=== PATIENT | male | born 1965 | race Caucasian/White ===

== ENCOUNTER 2020-01-19 18:35 | Emergency (ER) | payer OTHER, SELFPAY ==
--- NOTE | 2020-01-19 18:41 | ED.GENADULT ---
HPI - General Adult General Chief complaint: Dizziness Stated complaint: Dizziness Time Seen by Provider: 01/19/20 18:40 Source: patient Mode of arrival: ambulatory Limitations: no limitations History of Present Illness HPI narrative: 54-year-old male patient presents to the [facility] with complaints of dizziness that started about 2 days ago. Patient denies any lightheadedness. Patient states he does not have any chest pain shortness of breath, fevers, vomiting or diarrhea. Patient states when the dizziness occurs he does have a little bit of nausea. Patient states that the dizziness started suddenly about 2 days ago and states it is worse with movement and worse when riding in a car. Patient denies any vision changes. Related Data Home Medications Medication Instructions Recorded Confirmed alprazolam 01/19/20 hydrocodone-acetaminophen 01/19/20 Allergies Allergy/AdvReac Type Severity Reaction Status Date / Time No Known Allergies Allergy Verified 10/08/16 08:11 Review of Systems Review of Systems: Narrative: CONSTITUTIONAL: Denies fever, chills, or sweats. EYES: Denies visual changes, redness, or discharge. ENT: Denies rhinorrhea, congestion, sore throat, positive intermittent left otalgia. CARDIOVASCULAR: Denies chest pain, palpitations, or edema. RESPIRATORY: Denies cough or dyspnea. GASTROINTESTINAL: Denies abdominal pain, nausea, vomiting, or diarrhea. GENITOURINARY: Denies dysuria or hematuria. SKIN: Denies rash or itching. MUSCULOSKELETAL: Denies back pain, joint pain, or myalgia. NEUROLOGIC: Denies headache, numbness, or weakness. Positive dizziness PSYCHIATRIC: Denies anxiety or depression. PMFSH Past Medical History Medical History (Updated 01/19/20 @ 19:02 by RICO Warren) Back pain Ruptured disc in back in 2006 GERD (gastroesophageal reflux disease) Nasal fracture Surgical History Surgical History (Updated 01/19/20 @ 18:42 by RICO Warren) H/O inguinal hernia repair Comments At the time of my signature I agree with nursing past medical history, surgical, social, and family history. There is no relevant family history pertinent to the presenting complaint. Exam Narrative: Exam Narrative: GENERAL: Well-appearing, well-nourished, and in no acute distress. HEAD: Normocephalic, atraumatic. EYES: PERRLA and EOMI. ENT: Nares clear, no rhinorrhea or epistaxis. Mucous membranes moist. Bilateral TMs are clear with no erythema or foreign bodies to the canal. Posterior pharynx with no erythema. NECK: Supple. No lymphadenopathy CHEST: Clear to auscultation. No respiratory distress. HEART: Regular rate and rhythm. No murmur heard. Normal peripheral pulses. ABDOMEN: Soft, nontender, nondistended, normal active bowel sounds. EXTREMITIES: Normal range of motion. No edema. SKIN: Warm, dry, no rash. NEURO: Alert and oriented x4, GCS 15. Cranial nerves II through XII grossly intact. No focal neurological deficits. Normal muscle strength and tone. Normal deep tendon reflexes. Negative Babinski, normal finger to nose coordination he had normal heel to villafana glide. Speech is clear. Normal gait. Negative Romberg and no pronator drift. Negative Shazia Hallpike test. Course Vital Signs Vital signs: Vital Signs Temperature 37.2 C 01/19/20 18:48 Pulse Rate 76 01/19/20 18:48 Respiratory Rate 16 01/19/20 18:48 Blood Pressure 157/88 H 01/19/20 18:48 Pulse Oximetry 98 01/19/20 18:48 Temperature 37.2 C 01/19/20 18:48 Pulse Rate 76 01/19/20 18:48 Respiratory Rate 16 01/19/20 18:48 Blood Pressure 157/88 H 01/19/20 18:48 Pulse Oximetry 98 01/19/20 18:48 Vital signs reviewed. The patient has been informed that they may have pre-hypertension or Hypertension based on a BP reading in the department. I recommend that the patient call the primary care provider listed on their discharge instructions or a physician of their choice this week to arrange follow up fo
[2020-01-19 18:48] VITALS: BP 157/88; PULSE 76; RESP 16; TEMP 37.2; O2SAT 98
== END 2020-01-19 19:04 | disposition home or self-care (01) ==
PROVIDERS: Emergency Provider Nurse Practitioner Family; PCP Family Medicine
DX: R42 Dizziness and giddiness (principal); K21.9 Gastro-esophageal reflux disease without esophagitis
CPT/HCPCS: 99213; G0463

== ENCOUNTER 2020-05-28 06:53 | Outpatient (NON) | payer OTHER, SELFPAY ==
[2020-05-30 13:29] LABS: SARS-CoV-2 RNA PCR Negative
== END 2020-05-28 06:54 ==
LOC: ANHCOVIDDT 07:00
PROVIDERS: PCP Family Medicine; Visit Provider Family Medicine
DX: Z20.828 Contact with and (suspected) exposure to other viral communicable diseases (principal)
CPT/HCPCS: 87635; C9803; U0003

== ENCOUNTER → 2021-05-23 03:15 | Outpatient (CLI) | payer OTHER, SELFPAY ==
[2021-05-23 17:50] LABS: SARS-CoV-2 RNA PCR Negative
[2021-05-23 21:14] LABS: Influenza Control Positive
== END ==
PROVIDERS: PCP Internal Medicine; Visit Provider Internal Medicine
DX: J06.9 Acute upper respiratory infection, unspecified (principal); R68.89 Other general symptoms and signs; Z20.822 Contact with and (suspected) exposure to COVID-19
CPT/HCPCS: 87804; C9803; U0003; U0005

== ENCOUNTER → 2021-07-10 02:56 | Outpatient (CLI) | payer OTHER, SELFPAY ==
[2021-07-10 13:26] LABS: Influenza Control Positive
[2021-07-10 21:06] LABS: SARS-CoV-2 RNA PCR Positive
== END ==
PROVIDERS: PCP Internal Medicine; Visit Provider Nurse Practitioner
DX: U07.1 COVID-19 (principal)
CPT/HCPCS: 87804; C9803; U0003; U0005

== ENCOUNTER 2023-03-24 15:14 | Emergency (ER) | payer OTHER, SELFPAY ==
[2023-03-24 15:27] VITALS: BP 128/90; PULSE 75; RESP 16; TEMP 36.3; O2SAT 99
--- NOTE | 2023-03-24 16:38 | ED.GENADULT ---
HPI - General Adult General Chief complaint: Upper Respiratory Infection Stated complaint: Sinus/Abdominal Pain Source: patient Mode of arrival: ambulatory Limitations: no limitations History of Present Illness HPI narrative: Patient presents for evaluation of sick symptoms. Symptom onset last night. He reports headache, body aches, chills, nausea, vomiting, productive cough, and sore throat. No fever, shortness of breath, otalgia. No recent sick contacts to his knowledge. He is not taking any medication to assist with the symptoms. He does not smoke. He has not taken a COVID test. Related Data Allergies Allergy/AdvReac Type Severity Reaction Status Date / Time No Known Allergies Allergy Verified 03/24/23 15:40 Review of Systems Review of Systems: CONSTITUTIONAL: Reports chills. Denies fever or sweats. EYES: Denies visual changes, redness, or discharge. ENT: Reports sore throat. Denies rhinorrhea, congestion or otalgia. CARDIOVASCULAR: Denies chest pain, palpitations, or edema. RESPIRATORY: Reports cough. Denies SOB GASTROINTESTINAL: Reports nausea and vomiting. Denies abdominal pain or diarrhea. GENITOURINARY: Denies dysuria or hematuria. SKIN: Denies rash or itching. MUSCULOSKELETAL: Reports generalized body aches NEUROLOGIC: Reports headache. Denies numbness, dizziness, or weakness. PSYCHIATRIC: Denies anxiety or depression. [facility] Past Medical History Medical History Anxiety Back pain Ruptured disc in back in 2006 COVID-19 GERD (gastroesophageal reflux disease) Left knee DJD Nasal fracture Right knee DJD Surgical History Surgical History H/O inguinal hernia repair Family History Family History Mother Family history non-contributory Social History Social History Smoking packs per day: 2 Smoking cigarettes per day: 40.0 Years smoked: 20 Smoking pack-years: 40.00 Smoking status: Former smoker Tobacco type: cigarettes Second hand tobacco smoke exposure: No Smoking end date: 07/13/02 Alcohol intake: current Alcohol use details: Social Substance use: never Substance use type: does not use Lack of Transportation: No Difficulty Paying for Meds: No Currently Unemployed: No Education: Associate Degree Difficulty w/ Childcare or Family Care: No Living arrangements: alone Occupation/Education: occupation Additional occupation/education comments: [employer] Gender identity (if verbalized by the patient): Male Sexual Orientation (if Verbalized by the Patient): Straight or Heterosexual Exam Narrative: GENERAL: Well-appearing, well-nourished, and in no acute distress. HEAD: Normocephalic, atraumatic. EYES: PERRLA and EOMI. ENT: Nares clear, no rhinorrhea or epistaxis. Mucous membranes moist. Oropharynx without tonsillar hypertrophy exudate or other lesions. Bilateral TMs pearly denton nonbulging NECK: Supple. No adenopathy or masses. No carotid bruits or JVD CHEST: Clear to auscultation. No respiratory distress. No wheezes rales or rhonchi HEART: Regular rate and rhythm. No murmur heard. Normal peripheral pulses. ABDOMEN: Soft, nontender, nondistended, normal active bowel sounds. EXTREMITIES: Normal range of motion. No edema. SKIN: Warm, dry, no rash. NEURO: No focal deficits. Alert and oriented x3. PSYCH: Normal mood and affect. Course Course Emergency Course: This is a 57-year-old male who presented for evaluation of sick symptoms. COVID and influenza were negative. He has no adventitious lung sounds warranting chest x-ray. Exam is consistent with acute viral syndrome. Increase hydration. Discharge with ibuprofen, Zofran, and mucinex DM. Follow up with primary provider. Go to the ER f
== END 2023-03-24 16:50 | disposition home or self-care (01) ==
PROVIDERS: Emergency Provider Nurse Practitioner; PCP Family Medicine
DX: B34.9 Viral infection, unspecified (principal); Z87.891 Personal history of nicotine dependence; Z20.822 Contact with and (suspected) exposure to COVID-19
CPT/HCPCS: 87426; 87804; 99213; C9803; G0463

== ENCOUNTER 2023-08-16 10:40 | Emergency (ER) | payer OTHER, SELFPAY ==
[2023-08-16 11:10] VITALS: BP 154/84; PULSE 73; RESP 16; TEMP 36.7; O2SAT 98
--- NOTE | 2023-08-16 12:16 | ED.GENADULT ---
HPI - General Adult General Chief complaint: Upper Respiratory Infection Stated complaint: Bodyaches/Cough Source: patient Mode of arrival: ambulatory Limitations: no limitations History of Present Illness HPI narrative: Patient presents for evaluation of sick symptoms for last 2 days. Symptoms include chills, scratchy throat, nausea, generalized body aches, mild SOB and a scratchy feeling in the lungs . No recent sick contacts to his knowledge. No fever, vomiting, diarrhea. Last bowel movement this morning, substantial in size, solid and without the presence of mucous or blood. He is not taking any medications to assist with his symptoms. Related Data Allergies Allergy/AdvReac Type Severity Reaction Status Date / Time No Known Allergies Allergy Verified 08/16/23 12:09 Review of Systems Review of Systems: CONSTITUTIONAL: reports chills. Denies fever. EYES: Denies visual changes, redness, or discharge. ENT: Reports scratchy throat .Denies rhinorrhea, congestion, sore throat, or otalgia. CARDIOVASCULAR: Denies chest pain, palpitations, or edema. RESPIRATORY: Reports mild shortness of breath. Denies cough. GASTROINTESTINAL: Reports nausea. Denies abdominal pain, vomiting, or diarrhea. GENITOURINARY: Denies dysuria or hematuria. SKIN: Denies rash or itching. MUSCULOSKELETAL: Reports generalized body aches. NEUROLOGIC: Denies headache, numbness, dizziness, or weakness. PSYCHIATRIC: Denies anxiety or depression. [facility] Past Medical History Medical History Anxiety Back pain Ruptured disc in back in 2006 COVID-19 GERD (gastroesophageal reflux disease) Left knee DJD Nasal fracture Right knee DJD Right knee pain Surgical History Surgical History H/O inguinal hernia repair Family History Family History Mother Family history non-contributory Social History Social History Smoking packs per day: 2 Smoking cigarettes per day: 40.0 Years smoked: 20 Smoking pack-years: 40.00 Smoking status: Former smoker Tobacco type: cigarettes Second hand tobacco smoke exposure: No Smoking end date: 07/13/02 Alcohol intake: current Alcohol use details: Social Substance use: never Substance use type: does not use Lack of Transportation: No Difficulty Paying for Meds: No Currently Unemployed: No Education: Associate Degree Difficulty w/ Childcare or Family Care: No Living arrangements: alone Occupation/Education: occupation Additional occupation/education comments: [employer] Gender identity (if verbalized by the patient): Male Sexual Orientation (if Verbalized by the Patient): Straight or Heterosexual Exam Narrative: GENERAL: Well-appearing, well-nourished, and in no acute distress. HEAD: Normocephalic, atraumatic. EYES: PERRLA and EOMI. ENT: Nares clear, no rhinorrhea or epistaxis. Mucous membranes moist. Oropharynx without tonsillar hypertrophy exudate or other lesions. Bilateral TMs pearly denton nonbulging NECK: Supple. No adenopathy or masses. No carotid bruits or JVD CHEST: Clear to auscultation. No respiratory distress. No wheezes rales or rhonchi HEART: Regular rate and rhythm. No murmur heard. Normal peripheral pulses. ABDOMEN: Soft, nontender, nondistended, normal active bowel sounds. EXTREMITIES: Normal range of motion. No edema. SKIN: Warm, dry, no rash. NEURO: No focal deficits. Alert and oriented x3. PSYCH: Normal mood and affect. Course Course Emergency Course: This is a 58-year-old male who presented for evaluation of sick symptoms. COVID, influenza, strep were all negative. I offered to check a chest x-ray, which she declined. His exam is consistent with acute viral syndrome. Recommended o
== END 2023-08-16 12:50 | disposition home or self-care (01) ==
PROVIDERS: Emergency Provider Nurse Practitioner; PCP Nurse Practitioner
DX: B34.9 Viral infection, unspecified (principal); Z20.822 Contact with and (suspected) exposure to COVID-19; Z87.891 Personal history of nicotine dependence; K21.9 Gastro-esophageal reflux disease without esophagitis; M17.0 Bilateral primary osteoarthritis of knee; Z86.16 Personal history of COVID-19; F41.9 Anxiety disorder, unspecified
CPT/HCPCS: 87081; 87426; 87804; 87880; 99213; G0463

== ENCOUNTER 2024-08-03 08:48 | Emergency (ER) | payer BC, SELFPAY ==
--- NOTE | ~2024-08-03 | XR_ITS ---
Clinical Indication: Fever, cough PA and lateral views of the chest: Comparison: 01/01/2012 Findings: The lungs are clear, without evidence of focal consolidation or pleural effusion. Cardiome diastinal silhouette is within normal limits. Bones and soft tissues are unremarkable. Impression: Normal chest. Reviewed, dictated and finalized at [facility]. ONY WORKER Impression: Normal chest.
--- NOTE | 2024-08-03 09:02 | ED_ITS ---
HPI - URI/Sore Throat General Chief Complaint: Upper Respiratory Infection Stated Complaint: Sore Throat/Bodyaches Time Seen by Provider: 08/03/24 09:02 Source: patient, RN notes reviewed and old records reviewed Mode of arrival: ambulatory Limitations: no limitations History of Present Illness HPI Narrative: Patient presents with complaints of cough, sore throat, body aches, fever. He reports that symptoms began on Thursday and have been worsening. He reports that throat pain and cough for the worst of the symptoms. He has been taking [id number] medications with moderate relief. Says no matter what he does throat pain persists. Says the pain is worst in the morning, improves after drinking tea in the morning. No drooling or stridor, he is able to manage own secretions. Related Data Allergies Allergy/AdvReac Type Severity Reaction Status Date / Time No Known Allergies Allergy Verified 08/03/24 08:53 Review of Systems Review of Systems: All systems reviewed & are unremarkable except as noted in HPI and below Constitutional: Constitutional: Reports no additional constitutional complaints, Reports body ache(s), Reports chills, Reports fever(s) and Reports headache(s) ENT: Reports system reviewed and no additional complaints, except as documented, Reports nasal congestion and Reports sore throat Cardiovascular: Cardiovascular: Reports no additional cardiovascular complaints Respiratory: Respiratory: Reports no additional respiratory complaints and Rep orts cough Gastrointestinal: Gastrointestinal: Reports no additional gastrointestinal complaints [facility] Past Medical History Medical History Anxiety Back pain Ruptured disc in back in 2006 COVID-19 GERD (gastroesophageal reflux disease) Left knee DJD Nasal fracture Right knee DJD Right knee pain Surgical History Surgical History H/O inguinal hernia repair Family History Family History Mother Family history non-contributory Social History Social History Smoking packs per day: 2 Smoking cigarettes per day: 40.0 Years smoked: 20 Smoking pack-years: 40.00 Smoking status: Former smoker Tobacco type: cigarettes Second hand tobacco smoke exposure: No Smoking end date: 07/13/02 Alcohol intake: current Alcohol use details: Social Substance use: never Substance use type: does not use Lack of Transportation: No Difficulty Paying for Meds: No Currently Unemployed: No Education: Associate Degree Difficulty w/ Childcare or Family Care: No Living arrangements: alone Occupation/Education: occupation Additional occupation/education comments: [employer] Gender identity (if verbalized by the patient): Male Sexual Orientation (if Verbalized by the Patient): Straight or Heterosexual Comments At the time of my signature, I reviewed and agree with the nursing past medical, surgical, social, and family history. There is no relevant family history pertinent to the patient complaint. Exam Const: General: cooperative, no acute distress, alert and awake Orientation/consciousness: oriented to person, oriented to place and oriented to time HENMT: Head: normal to inspection Ears: TM's normal bilaterally Mouth: Yes oropharynx normal Throat: uvular edema Resp: Effort & Inspection: normal respiratory effort and able to speak in complete sentences Auscultation: clear to auscultation bilaterally, no crackles, no rales, no rhonchi and no wheezes Cardio: Palpation: normal PMI Rate: regular rate Rhythm: regular rhythm Heart sounds: S1 normal heart sound present and S2 normal heart sound present Neuro: General: oriented to person, oriented to place and oriented to time Cranial nerves: Yes CN's II-XII intact bilaterally Psych: Appearance: grossly normal Thought process: Normal thought process present Insight: Good insight present (Psych) Judgement: Good judgement present (Psych) Course Course Level of Care: Express Care Visit Vital Signs Vital signs: Reviewed MDM - URI/Sore Throat MDM Narrative Medical decision making narrative: Patient with mild swelling of the uvula, erythematous oropharynx. Able to manage own secretions, no wheezing, drooling, stridor noted. Negative flu, negative COVID, negative strep. Culture is pending. Will treat with antibiotics and steroids. Emergency department precautions discussed with patient. Discharge instructions reviewed with patient, as well as provided in writing per nursing staff. The instructions also include specific and strict return/GO TO THE ER as well as f/u information. All questions have been answered, and the patient deny any further questions with discharge and discharge plan. Some parts of this dictation were generated by voice recognition software and may contain typographical and/or grammatical inaccuracies. Differential Diagnosis Differential diagnosis: Likely upper respiratory infection, otitis media, influenza and pharyngitis Medical Records Attestation: I reviewed the patient's medical records. Lab Data Attestation: I reviewed the patient's lab results. Imaging Data Attestation: I personally reviewed and interpreted this imaging study as follows: My impression: no acute findings Radiologist's impression: [facility] [address] [place] [address] XRay Report Signed Patient: Dakotah Hadley Jr. : 1965 MR#: [id number] Age: 59 Acct:[id number] Loc: [facility] ADM Date: 08/03/24Attending Dr: Ordering Physician: Cynthia Waldrop FNP Date of Service: 08/03/24 Procedure(s): XR chest 2V Accession Number(s): [id number] cc: Cynthia Waldrop FNP; Juan Manuel Johnson APN~ Clinical Indication: Fever, cough PA and lateral views of the chest: Comparison: 01/01/2012 Findings: The lungs are clear, without evidence of focal consolidation or pleural effusion. Cardiomediastinal silhouette is within normal limits. Bones and soft tissues are unremarkable. Impression: Normal chest. Reviewed, dictated and finalized at [facility]. [employer] Please be advised this is a medical document. It is intended for [id number]-sqwz communication. It is written in medical language and may contain unfamiliar abbreviations or verbiage. Medical documents are intended to carry relevant information, facts as evident, and the clinical opinion of the practitioner at the time of the encounter. This report may have been done utilizing a voice recognition system. Attempts have been made to correct errors. However, there may be uncorrected grammatical, spelling, and recognition errors present. The file time of this note does not necessarily represent the time of service. Dictated By: Chandra Jerez MD 08/03/2448 Signed By: <Electronically signed by Chandra Jerez MD in OV> 08/03/24947 Discharge Plan Discharge Clinical Impression: Uvulitis URI (upper respiratory infection) Qualifiers: URI type: unspecified viral URI Qualified Code(s): J06.9 - Acute upper respiratory infection, unspecified Patient Disposition: Home, Self-Care Condition: Stable Instructions: Antibiotic Form, Uvulitis (ED), Cold Symptoms (ED) Additional Instructions: Take medications as prescribed. Follow with primary care provider. Emergency department for new or worse symptoms Patient Language: South Korean Prescriptions: New amoxicillin 875 mg tablet 875 mg PO Q12H Qty: 20 0RF prednisone 50 mg tablet 50 mg PO DAILY Qty: 5 0RF No Action omeprazole 40 mg capsule,delayed release(DR/EC) 40 mg PO DAILY Qty: 90 1RF alprazolam 1 mg tablet 1 mg PO TID PRN (Reason: anxiety) Qty: 70 0RF hydrocodone-acetaminophen 7.5-325 mg tablet 1 tablet PO TID PRN (Reason: pain) Qty: 90 0RF Follow-up/Referrals: Juan Manuel Johnson APRN [Primary Care Provider] - Stand Alone Forms: Work/School Release IP Time of Disposition: 10:00
[2024-08-03 09:10] VITALS: BP 164/99; PULSE 108; RESP 15; TEMP 37.7; O2SAT 98
[2024-08-03 09:25] LABS: EDCOVIDSCREEN Negative (Negative); EDINFLUASCREEN Negative (Negative); EDINFLUBSCREEN Negative (Negative); EDSTREPNEGPOS1 Negative (Negative)
== END 2024-08-03 10:05 | disposition home or self-care (01) ==
PROVIDERS: Emergency Provider Nurse Practitioner Family; PCP Nurse Practitioner
DX: K12.2 Cellulitis and abscess of mouth (principal); J06.9 Acute upper respiratory infection, unspecified; Z20.822 Contact with and (suspected) exposure to COVID-19; Z87.891 Personal history of nicotine dependence; K21.9 Gastro-esophageal reflux disease without esophagitis; M17.0 Bilateral primary osteoarthritis of knee; Z86.16 Personal history of COVID-19
CPT/HCPCS: 71046; 87081; 87426; 87804; 87880; 99213; G0463

== ENCOUNTER 2025-05-05 08:09 | Outpatient (CLI) | payer BC, SELFPAY ==
--- NOTE | ~2025-05-05 | US_ITS ---
ULTRASOUND ABDOMEN LIMITED (RIGHT UPPER QUADRANT) Clinical History: K90.49 - Malabsorption due to intolerance, not elsewhere ... Comparison: None Technique: Right upper quadrant sonography Findings: Liver: Normal size. Echogenic. No intrahepatic biliary ductal dilatation. Normal hepatopedal flow main portal vein. Common Duct: Normal caliber. 3 mm. Gallbladder: No stones. No wall thickening. No pericholecystic fluid. Pancreas: Unremarkable. Right kidney: Unremarkable. Retrohepatic IVC: Unremarkable. IMPRESSION: 1. No acute findings. 2. Mild hepatic steatosis. Reviewed, dictated and finalized at location R.
== END 2025-05-05 08:10 | disposition home or self-care (01) ==
PROVIDERS: PCP Nurse Practitioner; Visit Provider Nurse Practitioner
DX: K76.0 Fatty (change of) liver, not elsewhere classified (principal); K90.49 Malabsorption due to intolerance, not elsewhere classified
CPT/HCPCS: 76705

== ENCOUNTER 2025-06-16 01:54 | Day surgery (SDC) | payer BC, SELFPAY ==
[2025-05-26 11:13] VITALS: BMI 28.1
--- OUTSIDE RECORDS SUMMARY | 2025-06-16 01:57 | XMS_ITS | Clinical Summary ---
Author Organization [facility] Address [address] [place] [address] Care Team Providers Care Automation Test Developer Name Role Phone Kirk Aleman MD Primary Care Provider [phone] Allergies No known active allergies Medications omeprazole (PRILOSEC) 40 MG capsuleIndicatio ns:Abdominal pain, unspecified abdominal location Take 1 capsule (40 mg total) by mouth daily. 30 capsule 1 12/28/2023 Active HYDROcodone-acet aminophen (NORCO) 7.5-325 MG tabletIndication s:Chronic Pain Take 1 tablet by mouth 3 (three) times daily as needed for Pain. Indications: Chronic Pain FOR PAIN 90 tablet 12/28/2023 Active ALPRAZolam (XANAX) 1 MG tabletIndication s:Anxiety Take 1 tablet (1 mg total) by mouth 3 (three) times daily as needed. 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, sciatica laterality unspecified 12/09/2023 Anxiety 12/09/2023 Irritable bowel syndrome, unspecified type 12/08 Resolved Problems Problem Noted Date Diagnosed Date Resolved Date Chronic bilateral low back p ain without sciatica 10/27/2023 12/09/2023 Family History Medical History Relation Comments No Known Problems Daughter No Known Problems Father No Known Problems Mother No Known Problems Sister No Known Problems Son Relation Status Comments Daughter Alive Father Alive Mother Sister Alive Son Alive Social History Tobacco Use Types Packs/Day Years Used Date Smoking Tobacco: Former Cigarettes Q uit: 1994 Passive Smoke Exposure: Past Smokeless Tobacco: Never Tobacco Cessation:Counseling Given: No Alcohol Use Standard Drinks/Week Comments Yes 1.7 (1 standard drink = 0.6 oz p ure alcohol) PHQ-2 Answer Date Recorded Patient Health Questionnaire-2 Score 0 10/27/2023 Sex and Gender Information Value Date Recorded Sex Assigned at Not on file Legal Sex Male 4:03 PM CDT Gender Identity Not on file Sexual Orientation Not on file Last Filed Vital Signs Vital Sign Reading Time Taken Comments Blood Pressure 130/80 12/09/2023 12:37 PM CDT Pulse 78 12/09/2023 12:28 PM CDT Temperature 36.5 C (97.7 F) 12/09/2023 12:28 PM CDT Respiratory Rate 16 10/27/2023 1:43 PM CDT Oxygen Saturation 97% 12/09/2023 12:28 PM CDT Inhaled Oxygen Concentration - - Weight 91.3 kg (201 lb 3.2 oz) 12/09/2023 12:28 PM CDT Height 177.8 cm (5' 10) 10/27/2023 1:43 PM CDT Body Mass Index 28.87 10/27/2023 1:43 PM CDT Plan of Treatment Health Maintenance Due Date Last Done Comments Colorectal Cancer Screening Colonoscopy (10 Years) 1965 Annual Physical 1966 Hepatitis C 1981 DTaP, Tdap and Td Vaccines ( 1 - Tdap) 1982 Pneumococcal Vaccine: 50+ Ye ars (1 of 1 - PCV) 2013 Zoster Vaccines (1 of 2) 2013 PHQ-2 (Physician [place]) 07/13/2024 10/27/2023 COVID-19 Vaccine (1 - 2024-2 6 season) 2025 Influenza Adult (#1) 2025 RSV Immunization or 60+ Years (1 - 1-dose 75+ series) 2038 Hepatitis A Vaccines Aged Out No long er eligible based on patient's age to complete this topic Meningococcal B Vaccine Aged Out No l onger eligible based on patient's age to complete this topic Meningococcal Vaccine Aged Out No venus abbey eligible based on patient's age to complete this topic RSV Immunizations Under 20 Months Aged Out No longer eligible based on patient's age to complete this topic Care Teams Automation Test Developer Relationship Specialty Start Date End Date Kirk Aleman MD [facility] [facility] [place] [address] PCP - General FAMILY PRACTICE 03/27/25
--- OUTSIDE RECORDS SUMMARY | 2025-06-16 01:57 | XMS_ITS | Clinical Summary ---
Author Organization [facility] Address [address] [place] [address] Care Team Providers Care Bell Spinner Name Role Phone Yan Howard MD Primary Care Provider [phone] Allergies No known active allergies Medications ALPRAZolam (XANAX) 0.5 mg tablet TK ONE T PO BID PRF STRESS. 0 Active HYDROcodone-acetam inophen (NORCO) 7.5-325 mg per tablet TK ONE T PO TID PRF LOWER BACK PAIN 0 Active meclizine (ANTIVERT) 25 mg tablet TK 1 T PO BID PRF DIZZINESS 0 Active ondansetron ODT (ZOFRAN-ODT) 4 mg disintegrating tablet DIS 1 T ON THE TONGUE Q 6 H PRF NAUSEA OR VOM 0 Active celecoxib (CeleBREX) 200 mg capsule Take 1 capsule (200 mg total) by mouth 2 (two) times a day 60 capsule 2 0 Active Active Problems No known active problems Surgical History Surgery Date Site/Laterality Comments TONSILECTOMY, ADENOIDECTOMY, BILATERAL MYRINGOTOMY AND TUBES HERNIA REPAIR Social History Tobacco Use Types Packs/Day Years Used Date Smoking Tobacco: Former Smokeless Tobacco: Never Alcohol Use Standard Drinks/Week Comments Yes 0 (1 standard drink = 0.6 oz pur e alcohol) Personal Safety Answer Date Recorded Getting School Help Needed Not on file 09/25 Sex and Gender Information Value Date Recorded Sex Assigned at Not on file Legal Sex Male 7:19 AM [employer] Gender Identity Not on file Sexual Orientation Not on file Last Filed Vital Signs Vital Sign Reading Time Taken Comments Blood Pressure 137/89 03/13/2020 1:08 PM CDT Pulse 71 03/13/2020 1:08 PM CDT Temperature 36.4 C (97.6 F) 03/13/2020 1:08 PM CDT Respiratory Rate - - Oxygen Saturation - - Inhaled Oxygen Concentration - - Weight 88.5 kg (195 lb) 03/13/2020 1:08 PM CDT Height 177.8 cm (5' 10) 03/13/2020 1:08 PM CDT Body Mass Index 27.98 03/13/2020 1:08 PM CDT Plan of Treatment Not on file Insurance HMO Care Teams Bell Spinner Relationship Specialty Start Date End Date Yan Howard MD [address] [place] [id number] PCP - General Family Medicine 02/29/20
[2025-06-16 08:56] VITALS: BP 160/98; PULSE 75; RESP 20; TEMP 36.1; O2SAT 97; BMI 27.6
[2025-06-16] MEDS: LACTATED RINGERS 1,000 ML 150 ML IV CONT (09:03)
--- NOTE | 2025-06-16 09:44 | P.HP_ITS ---
History of Present Illness History of Present Illness Consent: Risks, benefits, and alternatives have been discussed and questions answered. Patient agrees to proceed with procedure. Chief complaint: blood in stool Narrative: Dakotah Hadley Jr. is a 60 year old male here for first colonoscopy, noted blood in stool Review of Systems Review of Systems: All systems reviewed & are unremarkable except as noted in HPI and below PMFSH Past Medical History Medical History (Updated 06/16/25 @ 09:45 by Ramon Renae MD) Rectal bleeding BMI 28.0-28.9,adult Right knee pain Left knee DJD Right knee DJD COVID-19 Anxiety Nasal fracture Back pain Ruptured disc in back in 2006 GERD (gastroesophageal reflux disease) Surgical History Surgical History H/O inguinal hernia repair Family History Family History Mother Family history non-contributory COPD (chronic obstructive pulmonary disease) Father Breast cancer Sibling No problems noted. Social History Social History Smoking packs per day: 2 Smoking cigarettes per day: 40.0 Years smoked: 20 Smoking pack-years: 40.00 Smoking status: Former smoker Tobacco type: cigarettes Second hand tobacco smoke exposure: Yes Smoking end date: 07/13/02 Alcohol intake: current Drinks per week: 4 Alcohol use details: Social Substance use: never Substance use type: does not use Last use: once every 2 weeks Lack of Transportation: No Lack of Food: Never True Current Housing: I Have Housing Concerned About Future Housing: No Difficulty Paying Gas/Electric Bills: No Difficulty Paying for Meds: No Currently Unemployed: No Education: Associate Degree Difficulty w/ Childcare or Family Care: No Living arrangements: alone Occupation/Education: occupation Additional occupation/education comments: [employer] Gender identity (if verbalized by the patient): Male Sexual Orientation (if Verbalized by the Patient): Straight or Heterosexual Spiritual care concerns: No Meds Home Medications and Allergies Home Medications ?Medication ?Instructions ?Recorded ?Confirmed ?Type omeprazole 40 mg capsule,delayed See Rx Instructions . Route 03/14/25 06/16/25 Rx release .COMPLEX #90 caps hydrocodone 7.5 mg-acetaminophen 1 tablet PO TID PRN p ain #90 tabs 05/03/25 06/02/25 Rx 325 mg tablet alprazolam 1 mg tablet 1 mg PO TID PRN anxiety #70 tabs 05/23/25 06/02/25 Rx Allergies Allergy/AdvReac Type Severity Reaction Status Date / Time No Known Allergies Allergy Verified 06/16/25 08:56 Vital Signs Vital Signs - 24 hr 06/16/25 08:56 Temperature 97 F L Pulse Rate 75 Respiratory Rate 20 Blood Pressure 160/98 H Pulse Oximetry 97 Oxygen Delivery Room Air Exam Const: General: comfortable and no acute distress HENMT: Face/Nose/Sinus: Normal nares present Eyes: General: appearance normal, both eyes and all related structures Neck: Neck: no JVD Resp: Auscultation: clear to auscultation bilaterally Cardio: Rate: regular rate Rhythm: regular rhythm GI: Inspection: non-distended GI Palp: Yes Soft to palpation Skin: General skin exam: normal color Extrem: General: normal to inspection Psych: Mental Status: mental status grossly normal Assessment and Plan Assessment and plan (1) Rectal bleeding: Code(s): K62.5 - Hemorrhage of anus and rectum Status: Acute Assessment and Plan: colonoscopy
--- NOTE | 2025-06-16 09:57 | S_PTH ---
PATIENT: Dakotah Hadley Jr. LOC: [facility]#:[id number] AGE/SX: 60/M ROOM: RE06/16/[address]: Ramon Renae MD : 1965 BED: DIS: 06/16/2025 SPEC #: [id number] RECD: 06/16/25 10:19 STATUS: KERRI REJohanne #: [id number] LEVAR: 06/16/25 09:[address]: Ramon Renae DEPT: [facility] Surgical RECD BY: Cristal Ibrahim ENTERED: 06/16/25 10:19 SP TYPE: Surgical OTHR DR: Dario Garay DO Tissues: A - Colon Polypectomy Procedures: Hematoxylin and Eosin Stain Gross and Microscopic Level 4
[2025-06-16 09:59] VITALS: BP 116/70; PULSE 80; RESP 18; O2SAT 96
[2025-06-16 10:09] VITALS: BP 116/72; PULSE 86; RESP 23; O2SAT 96
[2025-06-16 10:19] VITALS: BP 145/104; PULSE 73; RESP 28; O2SAT 100
--- NOTE | 2025-06-16 10:19 | ECG_ITS ---
Test Date: 2025-06-16 10:24:32 Measurements Intervals [place] Rate: 76 P: 44 NV: 155 QRS: 26 QRSD: 96 T: 20 QT: 378 QTc: 427 Interpretive Statements SINUS RHYTHM WITH OCCASIONAL SUPRAVENTRICULAR PREMATURE COMPLEXES MINIMAL Q WAVES- LAT/HIGH LAT LEADS BORDERLINE ECG No previous ECG available for comparison Electronically Signed On 06-16-2025 10:29:52 MACHINIST SUPERVISOR OUTSIDE by Jermaine Silva D.O.
[2025-06-16 10:29] VITALS: BP 160/92; PULSE 70; RESP 19; O2SAT 100
--- NOTE | 2025-06-16 10:39 | SUR.PHASEII ---
During recovery, Patient's heart rhythm showed to be irregular. Patient stated that he doesn't see a housing director and hasn't had an EKG done before. notified and a verbal-read back order for a 12 lead ekg given. read EKG results and okay with patient to be discharged and educated to follow up with primary doctor. Patient given discharge packet and instructed to contact with any questions or concerns.
== END 2025-06-16 10:38 | disposition home or self-care (01) ==
PROVIDERS: PCP Internal Medicine; Referring Provider Nurse Practitioner; Visit Provider Internal Medicine Gastroenterology
PROC: 0DJD8ZZ Inspection of Lower Intestinal Tract, Via Natural or Artificial Opening Endoscopic (ICD-10-PCS; CPT 45378; principal; 2025-06-16 10:30)
DX: D12.5 Benign neoplasm of sigmoid colon (principal); K64.8 Other hemorrhoids; K21.9 Gastro-esophageal reflux disease without esophagitis; F41.9 Anxiety disorder, unspecified; Z98.890 Other specified postprocedural states; Z79.891 Long term (current) use of opiate analgesic; Z87.891 Personal history of nicotine dependence; Z80.3 Family history of malignant neoplasm of breast
CPT/HCPCS: 45385; 88305; 93005; J2003; J2704; J7120